=== PATIENT | female | born 1970 | race Caucasian/White ===

== ENCOUNTER 2022-04-20 09:31 | Emergency (ER) | payer MEDICAID ==
[~2022-04-20] VITALS: Ht 162.6 cm; Wt 101.3 kg
[2022-04-20 09:41] VITALS: BP 175/93
--- NOTE | 2022-04-20 09:48 | NUR ---
VA: RIGHT EYE 20/50, LEFT EYE 20/40, BOTH EYES 20/30
--- NOTE | 2022-04-20 10:00 | NUR ---
BIB SELF C/O R EYELID PAIN, REDNESS, SWELLING X 3 DAYS.DENIES TRAUMA/INJURY. VA: RIGHT EYE 20/50, LEFT EYE 20/40, BOTH EYES 20/30 PMH: DENIES
--- NOTE | 2022-04-20 10:52 | NUR ---
PT AMB TO BED 12.
[2022-04-20] MEDS ORDERED: FLUORESCEIN OPTH STRIP 1 MG ONE (12:36)
[2022-04-20] MEDS ORDERED: TETRACAINE HCL/PF 0.5% OPTH 4 ML BTL ONE (12:38)
[2022-04-20] MEDS ORDERED: TOMOMETER 1 DEV DEV MC ONE (12:40)
--- NOTE | 2022-04-20 12:42 | NUR ---
per pa request, prepped eye tray with tonopen, woodlamp, and fluorescent strip, and tetracaine drop
[2022-04-20] MEDS ORDERED: SULF-58 PO (13:46)
[2022-04-20] MEDS ORDERED: CEPH500C16 PO (13:46)
[2022-04-20] MEDS ORDERED: ERYT5OIN51 OP (13:46)
[2022-04-20 13:52] VITALS: BP 151/87
[2022-04-21] MEDS ORDERED: FLUORESCEIN OPTH STRIP 1 MG OP ONE (08:25)
--- NOTE | 2022-04-21 08:28 | NUR ---
PER PHARMACY, ORDER PLACED FOR TETRA AND FLURO STRIP 1238 04/20/22 ORDER
[2022-04-21] MEDS ORDERED: TETRACAINE HCL/PF 0.5% OPTH 4 ML BTL OP ONE (12:38)
== END 2022-04-20 13:50 | disposition home or self-care (01) ==
LOC: MED 09:31
DX: N39.0 Urinary tract infection, site not specified (principal); H10.9 Unspecified conjunctivitis; B96.89 Other specified bacterial agents as the cause of diseases classified elsewhere; H00.033 Abscess of eyelid right eye, unspecified eyelid; R03.0 Elevated blood-pressure reading, without diagnosis of hypertension; Z79.899 Other long term (current) drug therapy; Z90.49 Acquired absence of other specified parts of digestive tract; Z98.890 Other specified postprocedural states
CPT/HCPCS: 81002; 81025; 99283

== ENCOUNTER 2024-02-16 19:38 | Emergency (ER) | payer MEDICAID, OTHER ==
[~2024-02-16] VITALS: Ht 162.6 cm; Wt 90.7 kg
[~2024-02-16 19:38] MED LIST: CEPH500C16 PO; ERYT5OIN51 OP; SULF-58 PO
[2024-02-16 19:55] VITALS: BP 144/81; PULSE 96; RESP 16; TEMP 100.7; O2SAT 100
[2024-02-16 20:28] LABS: BASOPHILS % (AUTO) 0.4 % (0.0-2.0); EOSINOPHILS % (AUTO) 0.4 % (0.0-4.0); HEMATOCRIT 35.4 % (36-48); HEMOGLOBIN 12.1 g/dL (12.0-16.0); LYMPHOCYTES # (AUTO) 0.5 K/uL (2.5-16.5); MEAN CORPUSCULAR HEMOGLOBIN 30 pg (27-31); MEAN CORPUSCULAR HGB CONC 34 g/dL (33-37); MEAN CORPUSCULAR VOLUME 88.2 fL (80-94); MONOCYTES # (AUTO) 0.2 K/uL (0.8-1.0); MONOCYTES % (AUTO) 2.7 % (1.7-9.3); NEUTROPHILS # (AUTO) 5.7 K/uL (1.8-7.7); NEUTROPHILS % (AUTO) 88.8 % (42.2-75.2); PLATELET COUNT (AUTO) 122 K/uL (140-450); RED BLOOD CELL COUNT(AUTO) 4.02 MIL/uL (4.20-5.40); RED CELL DISTRIBUTION WIDTH 13.7 % (11.6-13.7); WHITE BLOOD COUNT (AUTO) 6.4 K/uL (4.8-10.8)
[2024-02-16] MEDS: KETOROLAC 30 MG/ML VIAL IVP ONE (20:38)
[2024-02-16] MEDS: NACL 0.9% 2,000 ML IV SCH (20:38)
[2024-02-16] MEDS: ACETAMINOPHEN EXTRA STRENGTH 500 MG TAB PO ONE (20:38)
[2024-02-16 20:39] LABS: LYMPHOCYTES % (AUTO) 7.7 % (20.5-51.1)
[2024-02-16 20:45] LABS: LACTIC ACID 1.2 mmol/L (0.4-2.0)
[2024-02-16 20:47] VITALS: BP 144/81; RESP 24; TEMP 100.3; O2SAT 96
[2024-02-16 20:48] LABS: INR 1.03 (0.8-1.2); PARTIAL THROMBOPLASTIN TIME 26.5 secs (22-35.6); PROTHROMBIN TIME 10.8 secs (10.8-13.4)
[2024-02-16 21:35] LABS: ALANINE AMINOTRANSFERASE 21 U/L (12-78); ALBUMIN 3.2 g/dL (3.4-5.0); ALKALINE PHOSPHATASE 36 U/L (50-136); ASPARTATE AMINOTRANSFERASE 20 U/L (15-37); BILIRUBIN,DIRECT 0.1 mg/dL (0.0-0.3); TOTAL BILIRUBIN 0.6 mg/dL (0.0-1.0); TOTAL PROTEIN, SERUM 7.1 g/dL (6.4-8.2)
[2024-02-16 21:37] LABS: FLU A ANTIGEN negative (NEGATIVE); FLU B ANTIGEN NEGATIVE (NEGATIVE)
[2024-02-16 21:41] LABS: CARBON DIOXIDE 25.5 mmol/L (21-32); CREATININE 0.8 mg/dL (0.6-1.3); POTASSIUM 4.5 mmol/L (3.5-5.1)
[2024-02-16 21:44] VITALS: PULSE 85
[2024-02-16 22:44] LABS: APPEARANCE,URINE CLEAR (CLEAR); BILIRUBIN,URINE NEGATIVE (NEGATIVE); BLOOD, URINE TRACE-I (NEGATIVE); COLOR,URINE YELLOW (YELLOW); LEUKOCYTE ESTERASE ,URINE NEGATIVE (NEGATIVE); NITRITE, URINE NEGATIVE (NEGATIVE); PROTEIN,URINE 2+ (NEGATIVE); UGLUCOSE NEGATIVE (NEGATIVE)
[2024-02-16 22:49] LABS: RBC,URINE 0-5 /HPF (0-5); WBC,URINE 0-5 /HPF (0-5)
[2024-02-16 22:50] LABS: BACTERIA,URINE 10-30 (MOD) /HPF (None Seen); MUCUS,URINE 1+ /LPF (None Seen); SQUAMOUS EPITHELIAL CELL,UR 0-3 (FEW) /LPF (0-3 (FEW))
[2024-02-16] MEDS ORDERED: ONDA-188 PO (23:11)
[2024-02-16] MEDS ORDERED: CEPH-588 PO (23:57)
[2024-02-17] MEDS: cephALEXin 500 MG CAP PO ONE (00:31)
== END 2024-02-17 01:10 | disposition home or self-care (01) ==
LOC: MED 19:38
DX: K52.9 Noninfective gastroenteritis and colitis, unspecified (principal); Z20.822 Contact with and (suspected) exposure to COVID-19; E78.00 Pure hypercholesterolemia, unspecified; Z79.899 Other long term (current) drug therapy; Z90.49 Acquired absence of other specified parts of digestive tract
CPT/HCPCS: 36415; 71045; 74176; 80048; 80076; 81001; 83605; 83690; 83880; 84484; 85025; 85610; 85730; 87040; 87086; 87804; 93005; 96361; 96374; 99285; J1885